=== PATIENT | male | born 1955 | race Caucasian/White ===

== ENCOUNTER 2020-05-25 11:06 | Emergency (ER) | payer MEDICAID ==
[~2020-05-25] VITALS: Ht 172.7 cm; Wt 75.7 kg
[2020-05-25 11:06] VITALS: BP_SYST 154
--- NOTE | 2020-05-25 11:06 | NUR ---
Placed in room 02 . 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 To gown for exam. Side rails up. Report given to ZAHIRA ANDRADE.
--- NOTE | 2020-05-25 11:10 | NUR ---
Pt bib EMS from home with c/o heart palpitations and dizziness. EMS reports a-fib on EKG en route. V/S stable, pt is afebrile. Currently resting in bed, will continue to monitor.
[2020-05-25] MEDS ORDERED: NACL 0.9% 1,000 ML IV ONE (11:15)
--- NOTE | 2020-05-25 11:15 | NUR ---
ER Dr. Mohan at bedside examining patient.
--- NOTE | 2020-05-25 11:20 | NUR ---
EKG performed at BS by RN. Physician given copy of EKG for review.
--- NOTE | 2020-05-25 11:25 | NUR ---
Lab at bedside for blood draw.
[2020-05-25] MEDS ORDERED: LAMO200T2 PO (11:31)
[2020-05-25] MEDS ORDERED: OFLO5DRO6 RIGHT EYE (11:31)
[2020-05-25] MEDS ORDERED: SOM350 PO (11:31)
[2020-05-25] MEDS ORDERED: GABA-529 PO (11:31)
[2020-05-25] MEDS ORDERED: PREDEYE1% RIGHT EYE (11:31)
[2020-05-25] MEDS ORDERED: BRIN8DRO OP (11:31)
[2020-05-25] MEDS ORDERED: HYDR25TA4 PO (11:31)
[2020-05-25] MEDS ORDERED: XALEYE OP (11:31)
[2020-05-25] MEDS ORDERED: ATEN-41 PO (11:31)
--- NOTE | 2020-05-25 11:33 | NUR ---
Med rec and belongings list completed.
--- NOTE | 2020-05-25 11:34 | NUR ---
Radiology at bedside for CXR
[2020-05-25 11:38] LABS: BASOPHILS % (AUTO) 0.9 % (0.0-2.0); EOSINOPHILS # (AUTO) 0.1 K/uL (0.0-0.4); EOSINOPHILS % (AUTO) 1.6 % (0.0-4.0); HEMATOCRIT 46.9 % (36-54); HEMOGLOBIN 15.8 g/dL (14.0-18.0); LYMPHOCYTES # (AUTO) 1.4 K/uL (1.0-5.5); LYMPHOCYTES % (AUTO) 27.2 % (20.5-51.5); MEAN CORPUSCULAR HEMOGLOBIN 30 pg (27-31); MEAN CORPUSCULAR HGB CONC 34 % (32-36); MEAN CORPUSCULAR VOLUME 90 fL (79.0-98.0); MONOCYTES # (AUTO) 0.5 K/uL (0.0-1.0); MONOCYTES % (AUTO) 10.3 % (1.7-9.3); PLATELET COUNT (AUTO) 242 K/uL (130-430); RED BLOOD CELL COUNT(AUTO) 5.22 MIL/uL (4.2-6.2); RED CELL DISTRIBUTION WIDTH 18.4 % (9.0-15.0)
[2020-05-25 11:52] LABS: CALCIUM 9.2 mg/dL (8.4-11.0); CREATININE 0.92 mg/dL (0.55-1.30); POTASSIUM 3.7 mmol/L (3.5-5.1)
[2020-05-25 11:58] LABS: ALBUMIN 4.1 g/dL (3.4-4.8); TOTAL BILIRUBIN 0.3 mg/dL (0.0-1.0)
[2020-05-25] MEDS ORDERED: VERAPAMIL HCL 2.5 MG/ML 2ML VIAL IVP ONE (12:00)
[2020-05-25 12:58] VITALS: BP_SYST 154
--- NOTE | 2020-05-25 12:59 | NUR ---
Patient given written and verbal discharge instructions and verbalizes understanding. ER MD discussed with patient the results and treatment provided. Patient in stable condition. ID arm band removed. IV catheter removed intact and dressing applied, no active bleeding. No prescriptions given. Patient educated on pain management and to follow up with PMD. Pain Scale 0. Opportunity for questions provided and answered. Medication side effect fact sheet provided.
[2020-05-26 07:06] LABS: FREE PSA 0.2 ng/mL
== END 2020-05-25 12:58 | disposition home or self-care (01) ==
LOC: SED 11:06
DX: I48.91 Unspecified atrial fibrillation (principal); I10 Essential (primary) hypertension; Z79.899 Other long term (current) drug therapy
CPT/HCPCS: 36415; 71045; 80053; 83880; 84153; 84484; 85025; 93005; 96361; 96374; 99285; J7030